=== PATIENT | male | born 1980 | race Two or more races ===

== ENCOUNTER 2021-10-14 07:25 | Day surgery (SDC) | payer OTHER ==
[~2021-10-14 07:25] MED LIST: ATORVASTATIN CA20 MG PO
== END 2021-10-14 13:45 | disposition home or self-care (01) ==
LOC: CIR.AMB 07:25 → EDBD 11:00 → CIR.AMB 13:45
PROVIDERS: ATTEND Otolaryngology Otology & Neurotology
DX: H66.91 Otitis media, unspecified, right ear (principal); H72.91 Unspecified perforation of tympanic membrane, right ear; Z20.822 Contact with and (suspected) exposure to COVID-19; E78.5 Hyperlipidemia, unspecified